=== PATIENT | male | born 1980 | race Caucasian/White ===

== ENCOUNTER 2018-01-29 16:18 | Emergency (ER) | payer BC ==
[~2018-01-29] VITALS: Ht 188 cm; Wt 77.1 kg
[2018-01-29] MEDS ORDERED: XANAX0.25 MG PO (17:22)
== END 2018-01-29 17:28 | disposition home or self-care (01) ==
LOC: ER 16:18
DX: F06.4 Anxiety disorder due to known physiological condition (principal)